=== PATIENT | female | born 1970 | race Caucasian/White ===

== ENCOUNTER 2016-05-06 14:49 | Emergency (ER) | payer OTHER ==
[~2016-05-06] VITALS: Ht 157.4 cm; Wt 79.4 kg
[~2016-05-06 14:49] MED LIST: AMOXICILLIN500 MG PO; BUSPIRONE10 MG PO; CIPRO500 MG PO; CITALOPRAM10 MG PO; Carafate1 GM PO; FAMOTIDINE40 MG PO; FLAGYL500 MG PO; FLONASE 0.05% 121 EA NAS; HYDROCODONE BIT1 T11 PO; MEDROL DOSEPAK4 MG PO; Motrin,Rufen800 MG PO; OMEPRAZOLE20 MG PO; OMNICEF300 MG PO; PREDNISONE10 MG PO; PREDNISONE20 M1 PO; PYRIDIUM200 M1 PO; SEPTRA DS 800 M1 TAB PO; SYMBICORT1 AE1 INH; VISTARIL25 M1 PO; ZYRTEC10 M3 PO
[2016-05-06 15:41] LABS: BILIRUBIN NEGATIVE (NEGATIVE); BLOOD TRACE-INTACT (NEGATIVE); CLARITY SL CLOUDY (CLEAR); COLOR YELLOW (YELLOW); GLUCOSE NEGATIVE (NEGATIVE); KETONE NEGATIVE (NEGATIVE); LEUKO ESTERASE NEGATIVE (NEGATIVE); NITRITE NEGATIVE (NEGATIVE); PH 5.5 (5.0-9.0); PROTEIN NEGATIVE (NEGATIVE); SPECIFIC GRAVITY 1.025 (1.005-1.030); UROBILINOGEN 0.2 E.U./dl (0.2-1.0)
[2016-05-06 15:58] LABS: BACTERIA 1+; EPITHELIAL CELLS 15-20; MUCOUS TRACE; RBC 0-2 rbc/hpf (0-2); URINE REFLEX COMMENT NO (NO)
[2016-05-06] MEDS ORDERED: 'PARAFON FORTE500 M1 PO (16:03)
[2016-05-06] MEDS ORDERED: NAPROSYN500 MG PO (16:03)
== END 2016-05-06 16:59 | disposition home or self-care (01) ==
LOC: ED 14:49
PROVIDERS: Nurse Practitioner Family
DX: M25.551 Pain in right hip (principal); F17.200 Nicotine dependence, unspecified, uncomplicated